=== PATIENT | male | born 1960 | race Caucasian/White ===

== ENCOUNTER 2019-05-27 13:10 | Inpatient (IN) | payer MEDICARE ==
[~2019-05-27] VITALS: Wt 72.4 kg
[2019-05-27 13:20] VITALS: BP 156/72
[2019-05-27 13:50] LABS: BASO % 0.3 % (0.0-1.0); EOS # 0.3 10*3/uL (0.0-0.4); EOS % 2.6 % (1.0-4.0); HEMATOCRIT 42.5 % (42.0-52.0); HEMOGLOBIN 13.3 g/dl (14.0-18.0); MEAN CELL VOLUME 94.9 fl (80.0-94.0); MEAN CORPUSCULAR HGB 29.7 pg (27.0-31.0); MEAN CORPUSCULAR HGB CONC 31.3 g/dl (33.0-37.0); MEAN PLATELET VOLUME 10.3 fl (9.6-12.3); MONO # 0.6 10*3/uL (0.1-1.0); NEUT # 7.4 10*3/uL (2.3-7.9); NEUT % 71.9 % (47.0-73.0); PLATELET COUNT AUTOMATED 209 10*3/uL (130-400); RED BLOOD COUNT 4.48 10*6/uL (4.50-5.90); RED CELL DISTRI WIDTH 15.4 % (0-14.5); WHITE BLOOD COUNT 10.3 10*3/uL (4.8-10.8)
[2019-05-27 14:00] VITALS: BP 174/87
[2019-05-27 14:00] LABS: ACT PARTIAL THROMBO TIME 26.5 SECONDS (20.0-32.1)
[2019-05-27 14:06] LABS: ALBUMIN 3.6 gm/dl (3.1-4.5); ALKALINE PHOSPHATASE 82 U/L (45-117); BUN 23 mg/dl (7-24); CHLORIDE 110 mmol/L (98-107); CREATININE 1.41 mg/dL (0.70-1.30); POTASSIUM 3.9 mmol/L (3.5-5.1); SGOT/AST 12 IU/L (3-35); SGPT/ALT 19 U/L (12-78); SODIUM 142 mmol/L (136-145); TOTAL PROTEIN 7.3 gm/dL (6.4-8.2)
[2019-05-27 14:07] LABS: ETHYL ALCOHOL < 3.0 mg/dl (<3); TROPONIN I 0.029 ng/ml (<0.045)
[2019-05-27 14:24] LABS: CLARITY CLEAR (CLEAR); COLOR YELLOW (YELLOW); GLUCOSE NEGATIVE (NEGATIVE)
[2019-05-27 14:25] LABS: BILIRUBIN NEGATIVE (NEGATIVE); BLOOD NEGATIVE (NEGATIVE); KETONE NEGATIVE (NEGATIVE); LEUKO ESTERASE NEGATIVE (NEGATIVE); NITRITE NEGATIVE (NEGATIVE); SPECIFIC GRAVITY 1.015 (1.005-1.030); UROBILINOGEN 0.2 E.U./dl (0.2-1.0)
[2019-05-27 14:32] LABS: BACTERIA 1+; RBC 0-2 rbc/hpf (0-2); WBC 0-2 wbc/hpf (0-5)
[2019-05-27 14:36] LABS: URINE AMPHETAMINES < 1000 (1000ng/ml); URINE BARBITURATES < 200 (200ng/ml); URINE BENZODIAZEPINES > 200 (200ng/ml); URINE CANNABINOIDS (THC) < 50 (50ng/ml); URINE COCAINE > 300 (300ng/ml); URINE METHADONE < 300 (300ng/ml); URINE OPIATES < 300 (300ng/ml)
[2019-05-27 14:37] LABS: URINE PHENCYCLIDINE < 25 (25ng/ml)
--- NOTE | 2019-05-27 15:18 | NUR ---
CHACORTA Gunderson reports to nursing that patient is becoming less responsive. On assessment, patient has shallow respirations rate of 6 and withdrawls from painful stimulus only. Naloxone 0.2mg administered.
--- NOTE | 2019-05-27 15:33 | NUR ---
PT ASKS THAT HIS ERIC BE CALLED AT [phone] AND TO COPME GET HIM. ERIC REFUSES. PT INFORMED.
--- NOTE | 2019-05-27 15:45 | NUR ---
PT TAKEN TO FLOOR FOR ADMISSION. UPON ARRIVAL TO INPATIENT BED, PT STATES HE IS LEAVING AND ASKS TO CALL HIS .
--- NOTE | 2019-05-27 15:45 | NUR ---
A 58, admitted to , under the services of JAJA Winston DO with a diagnosis of ACCIDENTAL HEROIN OVERDOSE, OPIOID USE DISORDER. Chief complaint is OVERDOSE. Patient arrived via bed from ER. Monitor applied. Initial assessment completed. Vital signs taken and recorded. JAJA WINSTON DO notified of admission to the unit. Orders received. See assessment for past medical history, medications and allergies. Patient and/or family oriented to unit. [facility]. Clothing/patient valuable form completed. HILDA QUINTERO
--- NOTE | 2019-05-27 16:34 | NUR ---
PT CAME TO FLOOR AND STATED HE DOES NOT WISH TO BE ADMITTED AND IS LEAVING. DR REINA NOTIFIED, CAME TO FLOOR, SPOKE TO PATIENT AND STATED HE IS LEAVING AMA. PT ATTEMPTED TO CALL FOR RIDE WITH NO LUCK. IV REMOVED BY PATIENT. PT LEFT FLOOR ON FOOT WITH BELONGINGS. PT THOUGHT HE WAS IN [place] TALKING TO HIM. APPARENTLY THE BROUGHT HIM HERE AND DROPPED HIM OFF WITHOUT TELLING HIM WHERE THEY WERE GOING PER PT. EMANI NOTIFIED. RN MANAGEMENT COORDINATOR NOTIFIED.
--- NOTE | 2019-05-27 16:51 | NUR ---
ADMISSION ASSESSMENT AND QUESTIONS NOT COMPLETED DUE TO PT REFUSAL AND PT LEAVING AMA.
== END 2019-05-27 16:51 | disposition left against medical advice (07) | DRG 917 ==
LOC: ED 13:10 → EDHOLD 14:09 → 4E 14:47
PROVIDERS: Emergency Medicine; ADMIT Family Medicine
DX: T40.1X1A Poisoning by heroin, accidental (unintentional), initial encounter (principal); N17.0 Acute kidney failure with tubular necrosis; F11.23 Opioid dependence with withdrawal; F14.10 Cocaine abuse, uncomplicated; E87.8 Other disorders of electrolyte and fluid balance, not elsewhere classified; D53.9 Nutritional anemia, unspecified; R91.1 Solitary pulmonary nodule; F17.210 Nicotine dependence, cigarettes, uncomplicated; Y92.89 Other specified places as the place of occurrence of the external cause; Z53.29 Procedure and treatment not carried out because of patient's decision for other reasons